=== PATIENT | female | born 1950 | race Caucasian/White ===

== ENCOUNTER → 2016-11-07 | Outpatient (CLI) | payer MEDICARE, OTHER ==
--- NOTE | 2016-11-07 13:26 | REP ---
Whole body radionuclide bone scan: The study includes whole body bone scanning from the calvarium to the feet. Additionally, lateral views of the calvarium, oblique views of the ribs and oblique views of the pelvis are included. There uptake in the right acromioclavicular joint, likely degenerative . There is no unusual uptake in the calvarium, spine, ribs, pelvis or lower extremities. No unusual uptake on the lateral views of the calvarium, oblique views of the ribs or oblique views of the pelvis. Impression: No abnormal radiotracer uptake except for uptake in the right acromioclavicular joint, likely degenerative. . The study is performed with 806.6 MBq of technetium 99m labeled MDP. Signed by Aime Doran MD 11/07/2016 01:18 P
== END ==
LOC: M RAD 09:38
PROVIDERS: ATTEND Internal Medicine Medical Oncology
DX: C50.919 Malignant neoplasm of unspecified site of unspecified female breast (principal); M54.5 Low back pain
CPT/HCPCS: 78306; A9503

== ENCOUNTER → 2017-01-30 | Outpatient (CLI) | payer MEDICARE, OTHER ==
--- NOTE | 2017-01-30 10:44 | REP ---
NONCONTRAST LOW-DOSE CHEST CT: HISTORY: Lung cancer screening study. FINDINGS: The study is positive. There are multiple nodular opacities bilaterally. There is a right middle lobe 4 mm nodule visible anteriorly and laterally on image number 40. There is a 3 mm right middle lobe nodule on image number 47. There is a somewhat curvilinear nodular density 5 mm in diameter in the right middle lobe visible on image number 55 and 56. On the left, there are two adjacent pulmonary nodules along the course of the major fissure which appear to be in the lower lobe. These measure 6 mm in diameter visible on image number 42 and 7 mm in diameter on image number 44 of today's study. There is also a 5 mm nodule in the left lower lobe visible on image number 50. None of these is visibly calcified. A 3 mm nodule is visible in the left lower lobe on image number 67. No other abnormality. IMPRESSION: Positive low-dose screening lung CT. Multiple noncalcified pulmonary nodules present bilaterally ranging in size up to 7 mm. Followup is recommended in 4-6 months. Signed by Luisito Hankins MD 01/30/2017 12:26 P
== END ==
LOC: M RAD 09:21
PROVIDERS: ATTEND Family Medicine
DX: F17.210 Nicotine dependence, cigarettes, uncomplicated (principal)

== ENCOUNTER → 2017-02-25 | Outpatient (CLI) | payer MEDICARE, OTHER ==
--- NOTE | 2017-03-01 10:15 | SLEEPCENT ---
DATE OF PROCEDURE: 02/25/2017 REFERRING PROVIDER: Dr. Lupis Welch INTERPRETATION: Nocturnal polysomnography was performed for the evaluation of sleep apnea syndrome symptoms consisting of excessive daytime sleepiness, snoring, morning headaches, and nonrestorative sleep. A total of 7 hours and 50 minutes of data was reviewed with 357.5 minutes of sleep identified. Sleep latency was 21.5 minutes. Rapid eye movement (REM) latency was 194 minutes. No slow wave sleep was identified. Sleep efficiency was 77.1%. Electrocardiogram (EKG) showed normal sinus rhythm with an average heart rate of 66 beats per minute. Speeding and slowing was noted surrounding some respiratory events. No epileptiform discharge observed. There were 62 events observed of 10 seconds in duration or longer for an apnea-hypopnea index (AHI) of 10.4. In reviewing the data, I felt that there were several unscored events that were . The events were predominantly obstructive apnea/hypopnea, though there were some central and mixed events present. RERA index was 1.2 giving a total respiratory disturbance index (RDI) of greater than 11.6. Mean oxygen saturation for the study was 93% with a minimum recorded value of 84%. Arousal index was 4.9. Periodic limb movement index was 3.4. IMPRESSION: 1. Obstructive sleep apnea, at least mild. RECOMMENDATIONS: The patient should return to [facility] for the determination of pressure therapy. Pending that intervention, alcohol and sedative usage should be avoided and care should be taken when operating motor vehicles.
== END ==
LOC: M SLEEP 20:00
PROVIDERS: ATTEND Internal Medicine Pulmonary Disease
DX: G47.30 Sleep apnea, unspecified (principal)

== ENCOUNTER → 2017-03-22 | Outpatient (CLI) | payer MEDICARE, OTHER ==
[~2017-03-22] VITALS: Ht 160 cm; Wt 81.6 kg
[~2017-03-22] MED LIST: GABA-282 PO; MELO7.5T7 PO; OMEP20CA3 PO; SERT50TA PO; SPIR1CAP INH; TAMO20TA4 PO
[2017-03-22] MEDS: NS 1,000 ML IV SCH ×2 (08:00→11:42)
--- NOTE | 2017-03-22 12:57 | ROOR ---
Patient Name: Ronel Ramires Procedure Date: 03/22/2017 12:51 PM Date of : 1950 Age: 67 Room: [facility] Gender: Female Note Status: Finalized Procedure: Colonoscopy Indications: Screening for colorectal malignant neoplasm Providers: Omer Antoine Jr, MD Referring MD: Omer Antoine Jr, MD Requesting Provider: Medicines: Propofol per Anesthesia Complications: No immediate complications. Procedure: Pre-Anesthesia Assessment: - Prior to the procedure, a History and Physical was performed, and patient medications and allergies were reviewed. The patient is competent. The risks and benefits of the procedure and the sedation options and risks were discussed with the patient. All questions were answered and informed consent was obtained. Patient identification and proposed procedure were verified by the physician and the nurse in the pre-procedure area and in the procedure room. Mental Status Examination: alert and oriented. Airway Examination: normal oropharyngeal airway and neck mobility. Respiratory Examination: clear to auscultation. CV Examination: normal. ASA Grade Assessment: II - A patient with mild systemic disease. After reviewing the risks and benefits, the patient was deemed in satisfactory condition to undergo the procedure. The anesthesia plan was to use moderate sedation / analgesia (conscious sedation). Immediately prior to administration of medications, the patient was re-assessed for adequacy to receive sedatives. The heart rate, respiratory rate, oxygen saturations, blood pressure, adequacy of pulmonary ventilation, and response to care were monitored throughout the procedure. The physical status of the patient was re-assessed after the procedure. The Colonoscope was introduced through the anus and advanced to the cecum, identified by appendiceal orifice and ileocecal valve. The colonoscopy was performed without difficulty. The patient tolerated the procedure well. The quality of the bowel preparation was adequate and good. Findings: The perianal and digital rectal examinations were normal. Pertinent negatives include normal sphincter tone, no palpable rectal lesions and no anal lesion or abnormality was detected. The rectum, recto-sigmoid colon, sigmoid colon, descending colon, transverse colon, ascending colon, cecum, appendiceal orifice and ileocecal valve appeared normal. Impression: - The rectum, recto-sigmoid colon, sigmoid colon, descending colon, transverse colon, ascending colon, cecum, appendiceal orifice and ileocecal valve are normal. - No specimens collected. Recommendation: - Discharge patient to home (ambulatory). - Repeat colonoscopy in 10 years for screening purposes. Omer Antoine MD Omer Antoine Jr, MD 03/22/2017 12:57:01 PM This report has been signed electronically. Number of Addenda: 0 Note Initiated On: 03/22/2017 12:51 PM Estimated Blood Loss: Estimated blood loss: none.
[2017-03-22 13:15] VITALS: BP 114/64
== END | disposition home or self-care (01) ==
LOC: M OPP 11:19
PROVIDERS: ATTEND Surgery
DX: Z12.11 Encounter for screening for malignant neoplasm of colon (principal); R12 Heartburn; M19.90 Unspecified osteoarthritis, unspecified site; R21 Rash and other nonspecific skin eruption; F32.9 Major depressive disorder, single episode, unspecified; F41.9 Anxiety disorder, unspecified; J44.9 Chronic obstructive pulmonary disease, unspecified; E66.9 Obesity, unspecified; Z85.3 Personal history of malignant neoplasm of breast; Z87.891 Personal history of nicotine dependence; Z79.899 Other long term (current) drug therapy; Z92.3 Personal history of irradiation; Z80.0 Family history of malignant neoplasm of digestive organs

== ENCOUNTER → 2017-04-04 | Outpatient (CLI) | payer MEDICARE, OTHER ==
--- NOTE | 2017-04-21 09:37 | SLEEPCENT ---
DATE OF STUDY: 04/04/2017 INTERPRETATION: Nocturnal polysomnography was performed for the determination of pressure therapy in this patient with mild/moderate obstructive sleep apnea with an respiratory distress index (RDI) of at least 11.6 and associated symptoms of excessive daytime sleepiness, snoring, morning headaches, and nonrestorative sleep. A total of 7 hours and 35 minutes of data was reviewed for the entire titration with 323 minutes of sleep identified. Sleep latency was 33 minutes. Rapid eye movement( REM) latency was 291 minutes. No slow wave sleep was identified. Sleep efficiency was 72.4%. Electrocardiogram (EKG) showed normal sinus rhythm with an average heart rate of 60 beats per minute. No epileptiform discharge observed. The patient had been fit with a Resmed Mirage Quattro Full Face Mask of extra small size, 4 cm of water pressure was applied to the circuit and the lights were dimmed. CPAP that initially began at 4 cm of water pressure was taken to a high of 9 although she appeared to do best on a pressure of 8 cm. On that pressure, her apnea-hypopnea index (AHI) was 1.7 and her respiratory arousal index (OLEA) was 2.9. Oxygen saturation roosevelt was 88%. Rebound rapid eye movement (REM) sleep was seen on this pressure with a reasonably good waveform. The limitation of the study is no supine sleep was seen through the entire titration. In reviewing her diagnostic study she spent the vast majority of time on her side though she did have some supine sleep observed. IMPRESSION: 1. Obstructive sleep apnea, mild/moderate, reasonably palliated and CPAP at 8 cm of water pressure. The limitation of this study is that no supine sleep was observed during the entire titration. RECOMMENDATION: Recommend continuation of CPAP therapy at the above pressure via and extra small Resmed Mirage Quattro Full Face Mask or mask of her preference. Clinical correlation will be necessary to ensure radiation of symptoms. SWATHI
== END ==
LOC: M SLEEP 19:34
PROVIDERS: ATTEND Internal Medicine Pulmonary Disease
DX: G47.33 Obstructive sleep apnea (adult) (pediatric) (principal)

== ENCOUNTER → 2017-07-18 | Outpatient (CLI) | payer MEDICARE, OTHER ==
--- NOTE | 2017-07-18 13:37 | REP ---
CT of the chest without IV contrast, follow up of lung nodules: Comparison is 01/30/2017. There are the following lung nodules: Image 31, right upper lobe, 12 mm, not present previously. Image 33, right upper lobe, 12 mm, not present previously. Image 45, right upper lobe, 5 mm, unchanged. Image 45, right lower lobe, 6 mm, 5 mm previously. Image 49, left upper lobe, 6 mm, unchanged. Image 50, left upper lobe, 7 mm, unchanged. Image 52, right middle lobe, 3 mm, unchanged. Image 56, left lower lobe, 5 mm, unchanged. Image 62, right middle lobe, 5 mm, unchanged. Image 76, Left lower lobe, 3 mm, unchanged. There are no acute infiltrates or effusions. There is no mediastinal adenopathy. No axillary adenopathy. In the absence of IV contrast the study is insensitive for hilar adenopathy. Thoracic aorta is unremarkable. Cardiac size is normal. The visualized upper abdominal contents are unremarkable. There is no adrenal mass. Signed by Aime Doran MD 07/18/2017 01:28 P
== END ==
LOC: M RAD 11:14
PROVIDERS: ATTEND Internal Medicine Pulmonary Disease
DX: R91.8 Other nonspecific abnormal finding of lung field (principal)

== ENCOUNTER → 2017-10-30 | Outpatient (CLI) | payer MEDICARE, OTHER | LOC: M RAD 11:42 | DX: R91.8 Other nonspecific abnormal finding of lung field (principal) | CPT/HCPCS: 71250 ==

== ENCOUNTER → 2018-01-04 | Outpatient (REF) | payer MEDICARE, OTHER ==
[2018-01-04 11:03] LABS: BASO # 0.1 10^3/uL (0.0-0.2); BASO % 1.6 % (0.0-1.0); EOS # 0.2 10^3/uL (0.0-0.50); EOS % 3.3 % (0.0-3.0); HEMATOCRIT 38.6 % (36.0-47.0); HEMOGLOBIN 12.5 g/dl (12.0-15.5); IMMATURE GRANULOCYTE % 0.3 % (0-3.0); LYMPH % 35.7 % (24.0-44.0); MEAN CORPUSCULAR HEMOGLOBIN 28.2 pg (27.0-33.0); MEAN CORPUSCULAR HGB CONC 32.4 g/dl (32.0-36.5); MEAN CORPUSCULAR VOLUME 87.1 fl (80.0-96.0); MONO # 0.4 10^3/uL (0.0-0.8); NEUTROPHILS % 52.1 % (36.0-66.0); PLATELET COUNT, AUTOMATED 268 10^3/uL (150-450); RED BLOOD COUNT 4.43 10^6/uL (4.00-5.40); RED CELL DISTRIBUTION WIDTH 14.1 % (11.5-14.5); WHITE BLOOD COUNT 5.7 10^3/uL (4.0-10.0)
[2018-01-04 11:26] LABS: ALBUMIN 3.6 GM/DL (3.2-5.2); ALBUMIN/GLOBULIN RATIO 1.06 (1.00-1.93); ALKALINE PHOSPHATASE 110 U/L (45-117); ALT/SGPT 22 U/L (12-78); ANION GAP 5 MEQ/L (8-16); AST/SGOT 16 U/L (7-37); BILIRUBIN,TOTAL 0.3 MG/DL (0.2-1.0); BLOOD UREA NITROGEN 14 MG/DL (7-18); CALCIUM LEVEL 8.8 MG/DL (8.8-10.2); CARBON DIOXIDE LEVEL 29 MEQ/L (21-32); CHLORIDE LEVEL 109 MEQ/L (98-107); CHOLESTEROL LEVEL 257 MG/DL (<200); CHOLESTEROL RISK RATIO 4.355 (<5); CREATININE FOR GFR 0.78 MG/DL (0.55-1.30); GLOMERULAR FILTRATION RATE > 60.0 (>45); GLUCOSE, FASTING 96 MG/DL (70-100); HDL CHOLESTEROL 59 MG/DL (>40); LDL CHOLESTEROL 165.2 MG/DL (<100); NON-HDL-C 198 MG/DL; SODIUM LEVEL 143 MEQ/L (136-145); TRIGLYCERIDES LEVEL 164 MG/DL (<150)
== END ==
LOC: M LABDRAW1 08:51
DX: R03.0 Elevated blood-pressure reading, without diagnosis of hypertension (principal)
CPT/HCPCS: 84443

== ENCOUNTER → 2018-03-05 | Outpatient (REF) | payer MEDICARE, OTHER ==
[2018-03-05 17:30] LABS: ALBUMIN 3.3 GM/DL (3.2-5.2); ALBUMIN/GLOBULIN RATIO 0.97 (1.00-1.93); ALKALINE PHOSPHATASE 107 U/L (45-117); ALT/SGPT 20 U/L (12-78); AST/SGOT 9 U/L (7-37); BILIRUBIN,DIRECT < 0.1 MG/DL (0.0-0.2); BILIRUBIN,TOTAL 0.2 MG/DL (0.2-1.0); CHOLESTEROL LEVEL 163 MG/DL (<200); FREE T4 1.05 NG/DL (0.76-1.46); HDL CHOLESTEROL 56 MG/DL (>40); LDL CHOLESTEROL 87.4 MG/DL (<100); NON-HDL-C 107 MG/DL; TOTAL PROTEIN 6.7 GM/DL (6.4-8.2); TRIGLYCERIDES LEVEL 98 MG/DL (<150)
== END ==
LOC: M LABDRAW1 11:41
DX: E78.2 Mixed hyperlipidemia (principal); R94.6 Abnormal results of thyroid function studies
CPT/HCPCS: 84443

== ENCOUNTER → 2018-03-15 | Outpatient (CLI) | payer MEDICARE, OTHER | LOC: M WHC 09:13 | DX: M81.8 Other osteoporosis without current pathological fracture (principal) | CPT/HCPCS: 77080 ==

== ENCOUNTER → 2018-04-29 | Outpatient (CLI) | payer MEDICARE, OTHER | LOC: M RAD 10:37 | DX: R91.8 Other nonspecific abnormal finding of lung field (principal) | CPT/HCPCS: 71250 ==

== ENCOUNTER 2019-01-28 09:55 | Emergency (ER) | payer MEDICARE, OTHER ==
[~2019-01-28] VITALS: Ht 162.6 cm; Wt 69.5 kg
[~2019-01-28 09:55] MED LIST changes: -GABA-282 PO; +GABA-843 PO; +SERT-141 PO; -SERT50TA PO; -TAMO20TA4 PO; +TAMO20TA8 PO
[2019-01-28] MEDS ORDERED: SYMB16INH INH (10:27)
[2019-01-28] MEDS ORDERED: ATOR1TAB19 PO (10:27)
[2019-01-28] MEDS ORDERED: GI COCKTAIL 50ML BTL(HYOSCYAMINE/MAALOX/LIDOCAINE VISCOUS)(1:3:1) PO ONE (10:30)
[2019-01-28 10:32] LABS: BASO # 0.1 10^3/uL (0.0-0.2); BASO % 0.9 % (0.0-1.0); EOS # 0.2 10^3/uL (0.0-0.50); EOS % 3.6 % (0.0-3.0); HEMATOCRIT 38.4 % (36.0-47.0); HEMOGLOBIN 12.3 g/dl (12.0-15.5); LYMPH # 1.9 10^3/uL (1.5-4.5); LYMPH % 34.3 % (24.0-44.0); MEAN CORPUSCULAR HEMOGLOBIN 28.1 pg (27.0-33.0); MEAN CORPUSCULAR VOLUME 87.7 fl (80.0-96.0); MONO # 0.5 10^3/uL (0.0-0.8); MONO % 8.1 % (0.0-5.0); NEUTROPHILS % 52.9 % (36.0-66.0); PLATELET COUNT, AUTOMATED 222 10^3/uL (150-450); RED BLOOD COUNT 4.38 10^6/uL (4.00-5.40); WHITE BLOOD COUNT 5.6 10^3/uL (4.0-10.0)
--- NOTE | 2019-01-28 10:35 | REP ---
Portable chest, 10:13 a.m., single AP view, the patient is upright: Comparison is the PA and lateral plain film study dated 07/24/2006. The lung estrada are clear. The cardiac size is normal. The vikki, mediastinum, and skeletal structures are unremarkable. Impression: Negative portable chest. There is no interval change. Electronically Signed by Aime Doran MD 01/28/2019 10:26 A
[2019-01-28 10:42] LABS: INR 0.98; PROTHROMBIN TIME 13.1 SECONDS (12.1-14.4)
[2019-01-28 11:02] LABS: ALBUMIN 3.2 GM/DL (3.2-5.2); ALT/SGPT 18 U/L (12-78); BILIRUBIN,DIRECT < 0.1 MG/DL (0.0-0.2); BILIRUBIN,TOTAL 0.3 MG/DL (0.2-1.0); BLOOD UREA NITROGEN 14 MG/DL (7-18); CALCIUM LEVEL 8.4 MG/DL (8.8-10.2); CARBON DIOXIDE LEVEL 29 MEQ/L (21-32); CHLORIDE LEVEL 106 MEQ/L (98-107); CK-MB VALUE MASS < 1.0 NG/ML (<3.6); CPK CREATINE PHOSPHOKINASE 51 U/L (26-192); CREATININE FOR GFR 0.76 MG/DL (0.55-1.30); GLOMERULAR FILTRATION RATE > 60.0 (>45); GLUCOSE, FASTING 145 MG/DL (70-100); LIPASE 116 U/L (73-393); MB/CK RELATIVE INDEX 1.96 (< OR =4); NT-PRO BNP 86 PG/ML (<125); POTASSIUM SERUM 3.7 MEQ/L (3.5-5.1); SODIUM LEVEL 141 MEQ/L (136-145); TOTAL PROTEIN 6.5 GM/DL (6.4-8.2); TROPONIN I < 0.02 NG/ML (< 0.10)
[2019-01-28] MEDS ORDERED: ISOVUE-370 76% 100ML VIAL (Q9967) As Ordered ONE (11:11)
--- NOTE | 2019-01-28 11:54 | REP ---
CT pulmonary angiogram: With IV contrast. History: Pleuritic chest pain. The patient gives a history of left breast cancer. Comparison studies: Comparison noncontrast chest CT study April 29, 2018. Contrast dose: 75 mL of Isovue [address] technique: Helical scanning is acquired and overlapping 1.5 mm and contiguous 3 mm axial images are reformatted. In addition, maximum intensity projection and multiplanar re-formation images are generated in sagittal and coronal imaging projections. CT pulmonary angiographic findings: There is good opacification of the pulmonary arterial tree and there is no CT evidence of pulmonary embolism. No hilar or mediastinal mass or adenopathy is seen. No pleural or pericardial effusion is appreciated. There is a very small hiatal hernia. No adrenal lesion is observed. Visualized upper abdominal structures are unremarkable. There is a band of soft tissue density extending from the anterior surface of the medial aspect of the left pectoralis muscle anteriorly and superiorly to the overlying skin. This measures 2.5 cm in medial to lateral span by 3.1 cm anterior to posterior. This is not a new finding. It has relatively low density suggesting the possibility of hematoma/seroma. However, it is a little larger than it was previously. On October 2017 it measured 1.6 cm in thickness, 2.5 cm today. There are multiple bilateral noncalcified pulmonary nodules most of which are perifissural nodules. These are unchanged from April 29, 2018 prior study. The largest of these measures 7 mm in diameter. This is along the major fissure on the left. No new pulmonary nodule is appreciated. The previously noted right upper lobe ground-glass opacity has resolved. No bony destructive lesion is seen. Impression: No CT evidence of pulmonary embolus. There is a band of linear low density fluid or soft tissue in the subcutaneous fat of the left upper breast between the pectoralis muscle and the overlying skin. This is larger than it was on April of 2018. It measures 2.5 x 3.1 cm. Question hematoma seroma versus other. This should be correlated on physical exam. Otherwise no acute abnormality. Multiple stable perifissural lung nodules. Electronically Signed by Luisito Hankins MD 01/28/2019 05:22 P
[2019-01-28] MEDS ORDERED: SUCRALFATE SUSP 1GM/10ML UD PO ONE (13:00)
[2019-01-28] MEDS ORDERED: MORPHINE 2 MG/ML 1ML SYRINGE (J2270) IV PRN (13:00)
[2019-01-28] MEDS ORDERED: ONDANSETRON 4MG/2ML VIAL (J2405) IV ONE (13:00)
[2019-01-28] MEDS ORDERED: PANTOPRAZOLE 40MG INJ (PROTONIX) (C9113) IV ONE (13:00)
[2019-01-28] MEDS ORDERED: ASPI81TA85 PO (15:41)
[2019-01-28 16:48] LABS: CK-MB VALUE MASS < 1.0 NG/ML (<3.6); CPK CREATINE PHOSPHOKINASE 51 U/L (26-192); MB/CK RELATIVE INDEX 1.96 (< OR =4); TROPONIN I < 0.02 NG/ML (< 0.10)
[2019-01-28 17:42] VITALS: BP 100/59
--- NOTE | 2019-01-29 11:29 | ECGEPIP ---
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
--- NOTE | 2019-01-29 11:33 | ECGEPIP ---
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
--- NOTE | 2019-01-29 13:26 | ECGEPIP ---
Stationary ECG Study [facility] - ED Test Date: 2019-01-28 Pat Name: JOSE ALCANTAR Department: Room: - Gender: F Head Of Research & Insights: antonio : 1950 Requested By: Maritza Mosquera Order Number: [id number] Reading MD: Maritza Mosquera Measurements Intervals [place] Rate: 61 P: 57 ID: 165 QRS: 79 QRSD: 97 T: 53 QT: 405 QTc: 411 Interpretive Statements SINUS RHYTHM SIMILAR 01/28/19 12:55 Electronically Signed On 01-29-2019 13:26:19 EDT by Maritza Mosquera
--- NOTE | 2019-02-04 13:17 | ED PDOC ---
Post-Departure Follow-Up dr retana faxed formal report of cta for fu Alicia Bañuelos MD February 04, 2019 13:17
== END 2019-01-28 17:44 | disposition home or self-care (01) ==
LOC: M ED 09:55 → EDBD 09:55 → M ED 17:44
DX: R07.89 Other chest pain (principal); J44.9 Chronic obstructive pulmonary disease, unspecified; E78.5 Hyperlipidemia, unspecified; Z79.899 Other long term (current) drug therapy; Z79.82 Long term (current) use of aspirin; Z87.891 Personal history of nicotine dependence
CPT/HCPCS: 71045; 71275; 80047; 80048; 80076; 82550; 82553; 83690; 83880; 84443; 84484; 85025; 85610; 93005; 93041; 94760; 96374; 96375; 99285; C9113; J2270; J2405; Q9967

== ENCOUNTER → 2019-05-07 | Outpatient (REF) | payer MEDICARE, OTHER ==
[~2019-05-07] MED LIST changes: +ASPI81TA85 PO; +ATOR1TAB19 PO; -OMEP20CA3 PO; +OMEP20CA4 PO; +SYMB16INH INH
[2019-05-07 19:27] LABS: HEMOGLOBIN A1c 6.1 %
== END ==
LOC: M LABDRAW1 14:21
PROVIDERS: ATTEND Internal Medicine Cardiovascular Disease
DX: R73.9 Hyperglycemia, unspecified (principal)

== ENCOUNTER → 2019-07-07 | Outpatient (REF) | payer MEDICARE, OTHER ==
[2019-07-07 12:21] LABS: BASO # 0.1 10^3/uL (0.0-0.2); BASO % 1.5 % (0.0-1.0); EOS # 0.2 10^3/uL (0.0-0.5); EOS % 3.6 % (0.0-3.0); HEMATOCRIT 39.5 % (36.0-47.0); HEMOGLOBIN 12.7 g/dl (12.0-15.5); LYMPH # 1.7 10^3/uL (1.5-5.0); LYMPH % 29.6 % (24.0-44.0); MEAN CORPUSCULAR HEMOGLOBIN 28.6 pg (27.0-33.0); MEAN CORPUSCULAR HGB CONC 32.2 g/dl (32.0-36.5); MONO # 0.6 10^3/uL (0.0-0.8); NEUTROPHILS # 3.2 10^3/uL (1.5-8.5); PLATELET COUNT, AUTOMATED 242 10^3/uL (150-450); RED BLOOD COUNT 4.44 10^6/uL (4.00-5.40); WHITE BLOOD COUNT 5.9 10^3/uL (4.0-10.0)
[2019-07-07 13:03] LABS: ALBUMIN 3.4 GM/DL (3.2-5.2); ALT/SGPT 23 U/L (12-78); BILIRUBIN,TOTAL 0.3 MG/DL (0.2-1.0); BLOOD UREA NITROGEN 17 MG/DL (7-18); CALCIUM LEVEL 9.2 MG/DL (8.8-10.2); CARBON DIOXIDE LEVEL 30 MEQ/L (21-32); CHLORIDE LEVEL 107 MEQ/L (98-107); CHOLESTEROL LEVEL 197 MG/DL (<200); CHOLESTEROL RISK RATIO 3.283 (<5); CREATININE FOR GFR 0.73 MG/DL (0.55-1.30); GLOMERULAR FILTRATION RATE > 60.0 (>45); GLUCOSE, FASTING 98 MG/DL (70-100); HDL CHOLESTEROL 60 MG/DL (>40); LDL CHOLESTEROL 118 MG/DL (<100); NON-HDL-C 137 MG/DL; POTASSIUM SERUM 4.8 MEQ/L (3.5-5.1); SODIUM LEVEL 141 MEQ/L (136-145); TOTAL PROTEIN 6.8 GM/DL (6.4-8.2); TRIGLYCERIDES LEVEL 97 MG/DL (<150)
== END ==
LOC: M LABDRAW1 11:50
PROVIDERS: ATTEND Family Medicine
DX: R03.0 Elevated blood-pressure reading, without diagnosis of hypertension (principal); J44.9 Chronic obstructive pulmonary disease, unspecified; K21.9 Gastro-esophageal reflux disease without esophagitis; Z79.899 Other long term (current) drug therapy

== ENCOUNTER → 2019-12-31 | Outpatient (REF) | payer MEDICARE, OTHER ==
[~2019-12-31] MED LIST changes: +OMEP1CAP73 PO; -OMEP20CA4 PO
[2019-12-31 14:05] LABS: BLOOD UREA NITROGEN 19 MG/DL (7-18); CREATININE FOR GFR 0.79 MG/DL (0.55-1.30); GLOMERULAR FILTRATION RATE > 60.0 (>45)
== END ==
LOC: M LABDRAW1 12:53
PROVIDERS: ATTEND Nurse Practitioner Family
DX: Z85.3 Personal history of malignant neoplasm of breast (principal)

== ENCOUNTER → 2020-04-21 | Outpatient (CLI) | payer MEDICARE, SELFPAY ==
[~2020-04-21] MED LIST changes: -ASPI81TA85 PO; +ASPI81TA86 PO
== END ==
LOC: M LABSMTC 11:05
PROVIDERS: ATTEND Family Medicine
DX: Z11.59 Encounter for screening for other viral diseases (principal); Z20.828 Contact with and (suspected) exposure to other viral communicable diseases

== ENCOUNTER 2020-04-23 14:00 | Emergency (ER) | payer MEDICARE, OTHER ==
[2020-04-23] MEDS ORDERED: ISOVUE-370 76% 100ML VIAL As Ordered ONE (16:56)
--- NOTE | 2020-06-03 14:01 | ECGEPIP ---
SINUS RHYTHM NORMAL ECG SEE SCANNED DOWNTIME REPORT MTDD
[2020-06-06 16:49] LABS: BASO # 0.1 10^3/uL (0.0-0.2); BASO % 1.2 % (0.0-1.0); EOS # 0.2 10^3/uL (0.0-0.5); EOS % 3.6 % (0.0-3.0); HEMATOCRIT 41.2 % (36.0-47.0); HEMOGLOBIN 13.3 g/dl (12.0-15.5); LYMPH % 29.1 % (24.0-44.0); MEAN CORPUSCULAR HEMOGLOBIN 27.9 pg (27.0-33.0); MEAN CORPUSCULAR HGB CONC 32.3 g/dl (32.0-36.5); MEAN CORPUSCULAR VOLUME 86.6 fl (80.0-96.0); MONO # 0.7 10^3/uL (0.0-0.8); MONO % 9.9 % (0.0-5.0); NEUTROPHILS # 3.7 10^3/uL (1.5-8.5); NEUTROPHILS % 55.8 % (36.0-66.0); PLATELET COUNT, AUTOMATED 279 10^3/uL (150-450); RED BLOOD COUNT 4.76 10^6/uL (4.00-5.40); WHITE BLOOD COUNT 6.7 10^3/uL (4.0-10.0)
[2020-07-12 12:39] LABS: ALBUMIN 3.4 GM/DL (3.2-5.2); ALT/SGPT 35 U/L (12-78); BILIRUBIN,TOTAL 0.2 MG/DL (0.2-1.0); BLOOD UREA NITROGEN 16 MG/DL (7-18); CALCIUM LEVEL 9.1 MG/DL (8.8-10.2); CARBON DIOXIDE LEVEL 30 MEQ/L (21-32); CHLORIDE LEVEL 105 MEQ/L (98-107); CK-MB VALUE MASS < 1.0 NG/ML (<3.6); CPK CREATINE PHOSPHOKINASE 24 U/L (26-192); CREATININE FOR GFR 1.01 MG/DL (0.55-1.30); GLOMERULAR FILTRATION RATE 57.9 (>45); MB/CK RELATIVE INDEX 4.17 (< OR =4); POTASSIUM SERUM 4.3 MEQ/L (3.5-5.1); SODIUM LEVEL 139 MEQ/L (136-145); TOTAL PROTEIN 7.1 GM/DL (6.4-8.2); TROPONIN I < 0.02 NG/ML (< 0.10)
[2020-07-12 12:43] LABS: GLUCOSE, FASTING 90 MG/DL (70-100)
== END 2020-04-23 18:04 | disposition home or self-care (01) ==
LOC: M ED 14:00
DX: R91.8 Other nonspecific abnormal finding of lung field (principal); J44.9 Chronic obstructive pulmonary disease, unspecified; G47.30 Sleep apnea, unspecified; R92.8 Other abnormal and inconclusive findings on diagnostic imaging of breast; Z79.899 Other long term (current) drug therapy
CPT/HCPCS: 71045; 71275; 80053; 82553; 83605; 83880; 84484; 85025; 87040; 87486; 87581; 87633; 87798; 93005; 99284; Q9967

== ENCOUNTER → 2020-09-01 | Outpatient (CLI) | payer MEDICARE, OTHER ==
[2020-09-01 17:05] LABS: ALBUMIN 3.7 GM/DL (3.2-5.2); ALT/SGPT 21 U/L (12-78); BILIRUBIN,TOTAL 0.3 MG/DL (0.2-1.0); BLOOD UREA NITROGEN 14 MG/DL (7-18); CALCIUM LEVEL 9.1 MG/DL (8.8-10.2); CARBON DIOXIDE LEVEL 29 MEQ/L (21-32); CHLORIDE LEVEL 104 MEQ/L (98-107); CHOLESTEROL LEVEL 216 MG/DL (<200); CREATININE FOR GFR 0.92 MG/DL (0.55-1.30); FREE T4 1.12 NG/DL (0.76-1.46); GLOMERULAR FILTRATION RATE > 60.0 (>45); GLUCOSE, FASTING 119 MG/DL (70-100); HDL CHOLESTEROL 61 MG/DL (>40); LDL CHOLESTEROL 127 MG/DL (<100); NON-HDL-C 155 MG/DL; POTASSIUM SERUM 4.5 MEQ/L (3.5-5.1); SODIUM LEVEL 139 MEQ/L (136-145); TOTAL PROTEIN 7.2 GM/DL (6.4-8.2); TRIGLYCERIDES LEVEL 141 MG/DL (<150)
== END ==
LOC: M WUC 12:07
PROVIDERS: ATTEND Nurse Practitioner Family
DX: J44.9 Chronic obstructive pulmonary disease, unspecified (principal); E78.2 Mixed hyperlipidemia

== ENCOUNTER 2020-11-25 11:07 | Emergency (ER) | payer MEDICARE, OTHER ==
[~2020-11-25] VITALS: Ht 160 cm; Wt 80.8 kg
[~2020-11-25 11:07] MED LIST changes: +GABA-282 PO; -GABA-843 PO
[2020-11-25] MEDS ORDERED: PRED20TA PO (11:19)
[2020-11-25] MEDS ORDERED: AZIT-12 PO (11:19)
[2020-11-25 15:22] VITALS: BP 140/86
[2020-11-26] MEDS ORDERED: SPIR1CAP INH (09:43)
[2020-11-26] MEDS ORDERED: BACT800T5 PO (15:14)
== END 2020-11-25 14:20 | disposition home or self-care (01) ==
LOC: M ED 11:07
DX: U07.1 COVID-19 (principal); R06.00 Dyspnea, unspecified; R05 Cough; J44.9 Chronic obstructive pulmonary disease, unspecified; G47.33 Obstructive sleep apnea (adult) (pediatric); F33.9 Major depressive disorder, recurrent, unspecified; F41.9 Anxiety disorder, unspecified; Z79.82 Long term (current) use of aspirin; Z79.899 Other long term (current) drug therapy
CPT/HCPCS: 99281; M0239

== ENCOUNTER 2020-11-25 14:53 | Outpatient (CLI) | payer MEDICARE, OTHER ==
--- NOTE | 2020-11-25 13:25 | HPEPDOC ---
[facility] Medical History & Physical Date of Admission Nov 25, 2020 Date of Service: Nov 25, 2020 History and Physical Chief complaint: Who presented to the ER after a recent COVID19 diagnosis History of present illness: Patient is a 70 year old female who reported that on 11/21 was experiencing congestion, cough and body aches and eventually that tested for COVID19 on 11/24. Patient had tested positive at the urgent care. Patient was provided prescription of prednisone and azithromycin and went home. Subsequen cata, she contacted her natural sciences professor on 11/25 advised her to come to the emergency room for further evaluation and likely administration of monoclonal antibodies. Currently patient reports a mild headache. Denies any nausea, vomiting, and eyes any chest pain. Reports some shortness of breath. Reports a nonproductive cough. Reports some intermittent abdominal discomfort. Denies any constipation, diarrhea, or urinary discomfort. Denies any fevers but does report chills. Reports her appetite is normal without any changes in her weight. 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 Review of Systems: 10 point review of systems complete, all negative otherwise stated in HPI Physical exam: - Vitals: BP [130/82], HR [85], RR [20], Sat [95%RA], Temp [97.2F] - General: Lying in bed, Speaking in full sentences, AAOx3 - HEENT: NC, AT, PERRLA - CVS: RRR, +S1S2 - Lungs: Fair air entry bilaterally, No appreciable wheezing / rales / rhonchi - Abdomen: Soft, Non-distended, Non-tender - Extremities: No lower extremity edema, No calf tenderness - Neuro: No focal motor or sensory deficit - Skin: No visible rashes Labs: See below Imaging: See below EKG: See below Assessment and Plan: COVID19 infection - Patient reported symptom onset on 11/21 - Had tested positive on 11/24 - Has been advised to come to the emergency room for evaluation of monoclonal antibodies - Patient is saturating well on room air and is not hypoxic - Patient will be provided infusion of monoclonal antibodies - Discussed risks and benefits with patient; she agrees and has signed consent - After infusion patient will be monitored for signs of allergic reaction and will subsequently be discharged home with services with instructions to follow- up with primary care provider Home Medications Scheduled Atorvastatin Calcium (Atorvastatin Calcium) 10 Mg Tablet, 1 TAB PO DAILY Azithromycin (Azithromycin) 250 Mg Tablet, 250 MG PO ASDIRECTED Budesonide/Formoterol (Symbicort 160-4.5 Mcg Inhaler) 6 Gm Hfa.aer.ad, 2 PUFF INH BID Omeprazole (Omeprazole) 20 Mg Cap, 20 MG PO DAILY Prednisone (Prednisone) 20 Mg Tablet, 20 MG PO ASDIRECTED Sertraline Hcl (Sertraline HCl) 50 Mg Tab, 50 MG PO DAILY Tamoxifen Citrate (Tamoxifen Citrate) 20 Mg Tab, 20 MG PO DAILY Allergies Coded Allergies: No Known Allergies (Unverified , 03/13/17) MILAGROS SPAIN MD Nov 25, 2020 13:25
[2020-11-25 14:46] VITALS: BP 126/77
[~2020-11-25 14:53] MED LIST changes: +ALBUTEROL 90 MCG/ACT 8GM HFA INHALER INH PRN; +ALBUTEROL SULFATE 2.5 MG/0.5 ML INH NEB SOLN INH PRN; +AZIT-12 PO; +EPINEPHrine INJ 1 MG/ML 1ML AMP IM PRN; +NS 1,000 ML IV SCH; +PRED20TA PO; +diphenhydrAMINE 50MG/ML VIAL (J1200) IV PRN; +methylPREDNISolone 125MG 2ML VIAL IV PRN
[2020-11-25] MEDS ORDERED: BAMLANIVIMAB 700 MG in NS 250 ML IV ONE (15:00)
[2020-11-25 16:25] VITALS: BP 132/81
[2020-11-25 17:00] VITALS: BP 141/81
[2020-11-25 17:30] VITALS: BP 124/80
[2020-11-25 18:30] VITALS: BP 137/67
[2020-11-26] MEDS ORDERED: SPIR1CAP INH (09:43)
[2020-11-26] MEDS ORDERED: BACT800T5 PO (15:14)
== END 2020-11-25 18:40 | disposition home or self-care (01) ==
LOC: M 4MAIN 14:53 → M OPCLI4PR 14:53
PROVIDERS: ATTEND Internal Medicine
DX: U07.1 COVID-19 (principal)

== ENCOUNTER 2020-11-26 09:30 | Emergency (ER) | payer MEDICARE, OTHER ==
[~2020-11-26] VITALS: Ht 160 cm; Wt 80.6 kg
[~2020-11-26 09:30] MED LIST changes: -ALBUTEROL 90 MCG/ACT 8GM HFA INHALER INH PRN; -ALBUTEROL SULFATE 2.5 MG/0.5 ML INH NEB SOLN INH PRN; -EPINEPHrine INJ 1 MG/ML 1ML AMP IM PRN; -NS 1,000 ML IV SCH; -diphenhydrAMINE 50MG/ML VIAL (J1200) IV PRN; -methylPREDNISolone 125MG 2ML VIAL IV PRN
[2020-11-26] MEDS ORDERED: SPIR1CAP INH (09:43)
[2020-11-26] MEDS: COMBIVENT RESPIMAT 100-20MCG INHALER 4GM INH SCH ×3 (10:01→11:11)
[2020-11-26 10:39] LABS: BASO % 0.4 % (0.0-1.0); HEMATOCRIT 40.5 % (36.0-47.0); HEMOGLOBIN 13.2 g/dl (12.0-15.5); LYMPH # 1.1 10^3/uL (1.5-5.0); LYMPH % 22.6 % (24.0-44.0); MEAN CORPUSCULAR HEMOGLOBIN 28.3 pg (27.0-33.0); MEAN CORPUSCULAR HGB CONC 32.6 g/dl (32.0-36.5); MEAN CORPUSCULAR VOLUME 86.7 fl (80.0-96.0); MONO # 0.2 10^3/uL (0.0-0.8); NEUTROPHILS # 3.5 10^3/uL (1.5-8.5); NEUTROPHILS % 72.6 % (36.0-66.0); PLATELET COUNT, AUTOMATED 223 10^3/uL (150-450); RED BLOOD COUNT 4.67 10^6/uL (4.00-5.40); WHITE BLOOD COUNT 4.8 10^3/uL (4.0-10.0)
--- NOTE | 2020-11-26 10:40 | REP ---
INDICATION: Coronavirus workup. COMPARISON: None. TECHNIQUE: SINGLE PORTABLE AP VIEW OF THE CHEST WAS PERFORMED. FINDINGS: THERE IS NO ACUTE INFILTRATE OR PULMONARY EDEMA. LUNGS ARE CLEAR. HEART IS NOT SIGNIFICANTLY ENLARGED. MEDIASTINAL SILHOUETTE IS UNREMARKABLE. THE VISUALIZED OSSEOUS STRUCTURES ARE INTACT. IMPRESSION: NO ACUTE PULMONARY DISEASE. <Electronically signed by Aime Ojeda > 11/26/20 [id number]
[2020-11-26 10:48] LABS: INR 0.92; PROTHROMBIN TIME 12.5 SECONDS (12.5-14.3)
[2020-11-26 10:49] LABS: PARTIAL THROMBOPLASTIN TIME 25.8 SECONDS (24.2-38.5)
[2020-11-26 10:52] LABS: D-DIMER QUANT 540.5 ng/ml (<500)
[2020-11-26 10:59] LABS: ALBUMIN 3.7 GM/DL (3.2-5.2); ALT/SGPT 44 U/L (12-78); BILIRUBIN,TOTAL 0.2 MG/DL (0.2-1.0); BLOOD UREA NITROGEN 16 MG/DL (7-18); C REACTIVE PROTEIN QUANTITATIV 0.54 MG/DL (0.00-0.30); CALCIUM LEVEL 8.9 MG/DL (8.8-10.2); CARBON DIOXIDE LEVEL 27 MEQ/L (21-32); CHLORIDE LEVEL 107 MEQ/L (98-107); CK-MB VALUE MASS < 1.0 NG/ML (<3.6); CPK CREATINE PHOSPHOKINASE 30 U/L (26-192); FERRITIN 118 NG/ML (8-252); GLOMERULAR FILTRATION RATE > 60.0 (>45); GLUCOSE, FASTING 119 MG/DL (70-100); LDH LACTATE DEHYDROGENASE 136 U/L (84-246); MAGNESIUM LEVEL 2.3 MG/DL (1.8-2.4); MB/CK RELATIVE INDEX 3.33 (< OR =4); POTASSIUM SERUM 4.3 MEQ/L (3.5-5.1); SODIUM LEVEL 137 MEQ/L (136-145); TOTAL PROTEIN 7.3 GM/DL (6.4-8.2); TROPONIN I < 0.02 NG/ML (< 0.10)
[2020-11-26] MEDS ORDERED: ISOVUE-370 76% 100ML VIAL As Ordered ONE (11:24)
--- NOTE | 2020-11-26 13:32 | REP ---
INDICATION: sob, covid ro pe COMPARISON: None. TECHNIQUE: Axial contrast enhanced images from the thoracic inlet to the upper abdomen using pulmonary embolus technique with multiplanar re-formations. 75 ml Isovue 370 intravenous contrast material administered without complication. This CT examination was performed using the following dose reduction techniques: Automated exposure control, adjustment of mA and/or kv according to the patient's size, and use of iterative reconstruction technique. FINDINGS: Satisfactory enhancement of the pulmonary vasculature is achieved and no filling defects are identified to suggest pulmonary embolus. Further evaluation of the mediastinum demonstrates normal thoracic aorta, heart and pericardium. The bilateral lung estrada are well aerated and clear without consolidation pleural effusion or pneumothorax. Tracheobronchial tree is patent. No nodule or mass lesion is identified. No adenopathy noted. Surrounding musculoskeletal structures intact 3.6 cm likely cystic lesion along the medial aspect of the left breast is again noted and requires correlation. IMPRESSION: No evidence for pulmonary embolus. No acute mediastinal or pleural parenchymal process. 3.6 cm cystic appearing lesion along the medial aspect of the left breast again noted and requires correlation. <Electronically signed by Hemal Mishra > 11/26/20 [id number]
--- NOTE | 2020-11-26 13:35 | REP ---
INDICATION: let flank pain. COMPARISON: None TECHNIQUE: Axial pre and post contrast-enhanced images from the lung bases to the pubic symphysis using 100 cc Isovue 370 intravenous contrast material. Coronal and sagittal reformations obtained. This CT examination was performed using the following dose reduction techniques: Automated exposure control, adjustment of mA and/or kv according to the patient's size, and the use of iterative reconstruction technique. FINDINGS: Liver, spleen, pancreas, gallbladder, bilateral adrenal glands and kidneys are normal. The enteric system including stomach, small, and large bowel appears normal. No evidence for obstruction or acute inflammatory process. Pelvis demonstrates normal bladder and evidence for prior hysterectomy. No ascites. No free air. No intraperitoneal or retroperitoneal adenopathy. Abdominal aorta and vasculature appear normal. Musculoskeletal structures are intact and without acute osseous abnormality. IMPRESSION: No acute abdominopelvic pathology appreciated. <Electronically signed by Hemal Mishra > 11/26/20 [id number]
[2020-11-26] MEDS ORDERED: BACT800T5 PO (15:14)
[2020-11-26] MEDS ORDERED: BACTRIM 160MG/800MG DS TAB PO ONE (15:15)
[2020-11-26 15:30] VITALS: BP 127/68
--- NOTE | 2020-11-26 18:49 | ECGEPIP ---
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
--- NOTE | 2020-11-26 19:39 | ED PDOC ---
Post-Departure Follow-Up dr retana faxed cta chest for fu Alicia Bañuelos MD Nov 26, 2020 19:39
== END 2020-11-26 15:49 | disposition home health service (06) ==
LOC: M ED 09:30
DX: M54.5 Low back pain (principal); N39.0 Urinary tract infection, site not specified; U07.1 COVID-19; N60.02 Solitary cyst of left breast; J44.9 Chronic obstructive pulmonary disease, unspecified; K21.9 Gastro-esophageal reflux disease without esophagitis; G47.33 Obstructive sleep apnea (adult) (pediatric); F33.9 Major depressive disorder, recurrent, unspecified; F41.9 Anxiety disorder, unspecified; Z79.899 Other long term (current) drug therapy
CPT/HCPCS: 36415; 36600; 71045; 71275; 74178; 80053; 81001; 82550; 82553; 82728; 82803; 83605; 83615; 83735; 84145; 84484; 85025; 85379; 85384; 85610; 85730; 86140; 87040; 87088; 87186; 93005; 94640; 99285; Q9967

== ENCOUNTER → 2020-12-10 | Outpatient (CLI) | payer MEDICARE, OTHER ==
[~2020-12-10] MED LIST changes: +BACT800T5 PO
--- NOTE | 2020-12-10 12:17 | DEXAMM ---
INDICATION: Z13.820 SCR FOR OSTEOPOROSIS. COMPARISON: 03/15/2018 as well as other prior exams. TECHNIQUE: Bone density was measured using dual-energy x-ray absorptiometry (DEXA). FINDINGS: AP SPINE L1-L4 BMD 0.867 g/cm2 Young Adult T-Score -2.6 Age Matched Z-Score -1.0. LT FEMUR, TOTAL BMD 0.895 g/cm2 Young Adult T-Score -0.9 Age Matched Z-Score 0.6. LT NECK BMD 0.841 g/cm2 Young Adult T-Score -1.4 Age Matched Z-Score 0.3. RT FEMUR, TOTAL BMD 0.904 g/cm2 Young Adult T-Score -0.8 Age Matched Z-Score 0.6. RT NECK BMD 0.843 g/cm2 Young Adult T-Score -1.4 Age Matched Z-Score 0.3. IMPRESSION: There is osteoporosis of the spine. There is low bone density of the left hip. There is low bone density of the right hip. The density of the spine has increased 0.1% since the initial exam on 01/19/2010. The density of the spine decreased 5.6% since most recent exam on 03/15/2018. The density of the left hip has increased 0.7% since initial exam on 01/19/2010. The density of the left hip has decreased 2.1% since most recent exam on 03/15/2018. The density of the right hip has increased 7.2% since the initial exam on 01/19/2010. The density of the right hip has increased 0.4% since the most recent exam on 03/15/2018. FOLLOW-UP: Recommendation for the next bone density exam: 2 years. <Electronically signed by Aime Ojeda > 12/10/20 [id number]
== END ==
LOC: M WHC 10:43
PROVIDERS: ATTEND Nurse Practitioner Family
DX: Z13.820 Encounter for screening for osteoporosis (principal); M81.0 Age-related osteoporosis without current pathological fracture

== ENCOUNTER → 2021-03-15 | Outpatient (CLI) | payer MEDICARE, OTHER ==
[2021-03-15 11:50] LABS: ALBUMIN 3.4 GM/DL (3.2-5.2); ALT/SGPT 21 U/L (12-78); BILIRUBIN,TOTAL 0.3 MG/DL (0.2-1.0); BLOOD UREA NITROGEN 18 MG/DL (7-18); CALCIUM LEVEL 8.8 MG/DL (8.8-10.2); CARBON DIOXIDE LEVEL 29 MEQ/L (21-32); CHLORIDE LEVEL 105 MEQ/L (98-107); CREATININE FOR GFR 0.74 MG/DL (0.55-1.30); GLOMERULAR FILTRATION RATE > 60.0 (>39); GLUCOSE, FASTING 127 MG/DL (70-100); POTASSIUM SERUM 3.7 MEQ/L (3.5-5.1); SODIUM LEVEL 139 MEQ/L (136-145); TOTAL PROTEIN 6.6 GM/DL (6.4-8.2)
== END ==
LOC: M LAB 10:31
PROVIDERS: ATTEND Physician Assistant
DX: B35.1 Tinea unguium (principal)
CPT/HCPCS: 36415; 80053; G0463

== ENCOUNTER → 2021-04-04 | Outpatient (CLI) | payer MEDICARE, OTHER ==
--- NOTE | 2021-04-04 12:34 | REP ---
INDICATION: HX OF NICOTINE DEPENDENCE. COMPARISON: CTA 11/26/2020, 04/23/2020, 01/28/2019 TECHNIQUE: Low-dose lung CT noncontrast protocol followed FINDINGS: Lung estrada are well inflated. The right upper lobe on image 43 is a subpleural 5 mm nodule unchanged from November. There is a 6.7 mm nodule in the lateral the basal segment of the right lower lobe on image 43 which is also unchanged. The 1.5 cm density seen on 02/22 720 in superior segment of the right lower lobe is resolved with minimal residual scarring likely inflammatory process. There is cylindrical bronchiectatic change. 7 mm nodule in the perifissural region left mid lung zone which is unchanged. There are other 5-6 mm nodules scattered in the left lung peripherally and in the Danelle fissural region unchanged from previous study no pleural effusion, calcified pleural plaque or pleural thickening, apical scarring or pneumothorax IMPRESSION: 1. Lung RADS category 2, benign. Stable appearance of multiple perifissural nodules bilaterally, the largest 7 mm seen on both sides and with no new nodules or enlargement. No pleural thickening, pleural based mass, calcified plaque, pleural effusion or other acute finding. Patients in this category of finding have less than 1% chance of malignancy at the time of the examination. These are stable findings. For patients at high risk for malignancy, annual low-dose screening CT recommended. <Electronically signed by Oral Rosen > 04/04/21 [id number]
== END ==
LOC: M RAD 10:03
PROVIDERS: ATTEND Internal Medicine Pulmonary Disease
DX: Z87.891 Personal history of nicotine dependence (principal); R91.8 Other nonspecific abnormal finding of lung field

== ENCOUNTER → 2022-04-25 | Outpatient (CLI) | payer MEDICARE, OTHER | LOC: M RAD 08:32 | PROVIDERS: ATTEND Internal Medicine Pulmonary Disease | DX: Z87.891 Personal history of nicotine dependence (principal); R91.8 Other nonspecific abnormal finding of lung field; J47.9 Bronchiectasis, uncomplicated ==

== ENCOUNTER → 2022-11-23 | Outpatient (CLI) | payer MEDICARE, OTHER ==
[2022-11-23 16:19] LABS: BASO # 0.1 10^3/uL (0.0-0.2); BASO % 1.4 % (0.0-1.0); EOS # 0.2 10^3/uL (0.0-0.5); EOS % 2.8 % (0.0-3.0); HEMATOCRIT 40.1 % (36.0-47.0); HEMOGLOBIN 12.7 g/dl (12.0-15.5); LYMPH # 2.3 10^3/uL (1.5-5.0); LYMPH % 32.1 % (24.0-44.0); MEAN CORPUSCULAR HEMOGLOBIN 28.7 pg (27.0-33.0); MEAN CORPUSCULAR HGB CONC 31.7 g/dl (32.0-36.5); MEAN CORPUSCULAR VOLUME 90.7 fl (80.0-96.0); MONO # 0.6 10^3/uL (0.0-0.8); MONO % 8.8 % (2.0-8.0); NEUTROPHILS # 3.9 10^3/uL (1.5-8.5); NEUTROPHILS % 54.5 % (36.0-66.0); PLATELET COUNT, AUTOMATED 252 10^3/uL (150-450); RED BLOOD COUNT 4.42 10^6/uL (4.00-5.40); WHITE BLOOD COUNT 7.2 10^3/uL (4.0-10.0)
[2022-11-23 16:40] LABS: ALBUMIN 3.7 G/DL (3.2-5.2); ALKALINE PHOSPHATASE 93 U/L (46-116); ALT/SGPT 24 U/L (7.0-40); AST/SGOT 20 U/L (<34); BILIRUBIN,TOTAL 0.2 MG/DL (0.3-1.2); BLOOD UREA NITROGEN 16 MG/DL (9-23); CALCIUM LEVEL 9.1 MG/DL (8.3-10.6); CARBON DIOXIDE LEVEL 30 MMOL/L (20-31); CHLORIDE LEVEL 103 MMOL/L (98-107); CHOLESTEROL LEVEL 186 MG/DL (<200); CHOLESTEROL RISK RATIO 2.91 (<5); CREATININE FOR GFR 0.79 MG/DL (0.55-1.30); GLOMERULAR FILTRATION RATE > 60.0 (>39); GLUCOSE, FASTING 73 MG/DL (74-106); HDL CHOLESTEROL 63.7 MG/DL (>40); LDL CHOLESTEROL 97.7 MG/DL (<100); NON-HDL-C 122.3 MG/DL; POTASSIUM SERUM 4.4 MMOL/L (3.5-5.1); SODIUM LEVEL 138 MMOL/L (136-145); TOTAL PROTEIN 6.8 G/DL (5.7-8.2); TRIGLYCERIDES LEVEL 123 MG/DL (<150)
== END ==
LOC: M PLALAB 13:49
PROVIDERS: ATTEND Registered Nurse
DX: Z01.818 Encounter for other preprocedural examination (principal); J44.9 Chronic obstructive pulmonary disease, unspecified; E78.2 Mixed hyperlipidemia

== ENCOUNTER → 2023-03-26 | Outpatient (CLI) | payer MEDICARE, OTHER | LOC: M PLALAB 15:27 | PROVIDERS: ATTEND Nurse Practitioner Family | DX: J44.9 Chronic obstructive pulmonary disease, unspecified (principal) ==

== ENCOUNTER → 2023-05-23 | Outpatient (CLI) | payer MEDICARE, OTHER | LOC: M RAD 10:49 | PROVIDERS: ATTEND Internal Medicine Pulmonary Disease | DX: Z12.2 Encounter for screening for malignant neoplasm of respiratory organs (principal); Z87.891 Personal history of nicotine dependence ==

== ENCOUNTER → 2023-06-19 | Outpatient (CLI) | payer MEDICARE, OTHER | LOC: M WHC 09:07 | PROVIDERS: ATTEND Nurse Practitioner Family | DX: Z13.820 Encounter for screening for osteoporosis (principal); M85.88 Other specified disorders of bone density and structure, other site ==

== ENCOUNTER → 2023-09-20 | Outpatient (CLI) | payer MEDICARE, OTHER | LOC: M PLARAD 08:53 | PROVIDERS: ATTEND Nurse Practitioner Family | DX: G43.109 Migraine with aura, not intractable, without status migrainosus (principal) ==

== ENCOUNTER → 2023-10-31 | Outpatient (CLI) | payer MEDICARE, OTHER | LOC: M PLAIMG 08:21 | PROVIDERS: ATTEND Internal Medicine Pulmonary Disease | DX: R91.8 Other nonspecific abnormal finding of lung field (principal) ==

== ENCOUNTER 2023-12-01 14:40 | Inpatient (IN) | payer MEDICARE, OTHER ==
[~2023-12-01] VITALS: Ht 160 cm; Wt 77.3 kg
[2023-12-01] VITALS (7 sets, daily range): BP systolic 116–117; BP diastolic 70–73; TEMP 97.7–98.2; O2SAT 85–91
[2023-12-01] MEDS ORDERED: IPRATROPIUM 0.5MG/ALBUTEROL 2.5MG INH SOL UD 3ML (DUONEB) NEB PRN (14:55)
[2023-12-01 15:10] LABS: VENOUS BASE EXCESS 0.2 (-2.0-2.0); VENOUS HCO3 24.4 MMOL/L (23.0-27.0); VENOUS O2 SATURATION 95.1 % (60.0-80.0); VENOUS PARTIAL PRESSURE CO2 38.2 mmHg (38.0-50.0); VENOUS PARTIAL PRESSURE O2 74.2 mmHg (30.0-50.0); VENOUS PH 7.423 UNITS (7.330-7.430); VENOUS STANDARD HCO3 24.6 MMOL/L; VENOUS TOTAL CO2 25.6 MMOL/L (24.0-28.0)
[2023-12-01] MEDS: cefTRIAXone SOD 1 GM in D5W MINI-BAG PLUS 50 ML IV ONE (15:13)
[2023-12-01] MEDS: methylPREDNISolone 125MG 2ML VIAL IV ONE (15:13)
[2023-12-01] MEDS: AZITHROMYCIN INJ 500 MG, VIAL MATE ADAPTER 1 EACH in NS 250 ML IV ONE (15:13)
[2023-12-01] MEDS: ACETAMINOPHEN TAB 650MG DOSE (2X325MG) PO ONE (15:13)
[2023-12-01] MEDS: NS 1,000 ML IV ONE ×2 (15:14→21:00)
[2023-12-01 15:27] LABS: BASO % 0.6 % (0.0-1.0); EOS % 0.5 % (0.0-3.0); HEMATOCRIT 39.6 % (36.0-47.0); HEMOGLOBIN 12.9 g/dl (12.0-15.5); LYMPH # 0.8 10^3/uL (1.5-5.0); LYMPH % 13.3 % (24.0-44.0); MEAN CORPUSCULAR HEMOGLOBIN 28.3 pg (27.0-33.0); MEAN CORPUSCULAR HGB CONC 32.6 g/dl (32.0-36.5); MEAN CORPUSCULAR VOLUME 86.8 fl (80.0-96.0); MONO # 0.5 10^3/uL (0.0-0.8); MONO % 7.4 % (2.0-8.0); NEUTROPHILS # 4.9 10^3/uL (1.5-8.5); NEUTROPHILS % 77.7 % (36.0-66.0); PLATELET COUNT, AUTOMATED 209 10^3/uL (150-450); RED BLOOD COUNT 4.56 10^6/uL (4.00-5.40); WHITE BLOOD COUNT 6.3 10^3/uL (4.0-10.0)
[2023-12-01 15:49] LABS: ALBUMIN 3.4 G/DL (3.2-5.2); ALKALINE PHOSPHATASE 95 U/L (46-116); ALT/SGPT 30 U/L (7.0-40); AST/SGOT 25 U/L (<34); BILIRUBIN,DIRECT < 0.1 MG/DL (<0.4); BILIRUBIN,TOTAL 0.3 MG/DL (0.3-1.2); BLOOD UREA NITROGEN 11 MG/DL (9-23); CALCIUM LEVEL 8.5 MG/DL (8.3-10.6); CARBON DIOXIDE LEVEL 25 MMOL/L (20-31); CHLORIDE LEVEL 101 MMOL/L (98-107); CK-MB VALUE MASS < 1.0 NG/ML (<3.6); CREATININE FOR GFR 0.71 MG/DL (0.55-1.30); GLOMERULAR FILTRATION RATE > 60.0 (>39); GLUCOSE, FASTING 132 MG/DL (74-106); SODIUM LEVEL 134 MMOL/L (136-145); TOTAL PROTEIN 6.6 G/DL (5.7-8.2)
[2023-12-01 15:51] LABS: THYROID STIMULATING HORMONE 2.362 uIU/ML (0.55-4.78)
[2023-12-01 16:00] LABS: PROCALCITONIN 0.13 ng/ml
[2023-12-01 16:02] LABS: CPK CREATINE PHOSPHOKINASE 89 U/L (34-145); MB/CK RELATIVE INDEX 1.12 (< OR =4)
[2023-12-01] MEDS ORDERED: ISOVUE-370 76% 100ML VIAL As Ordered ONE (16:58)
[2023-12-01] MEDS ORDERED: ONDANSETRON 4MG 2ML VIAL IV PRN (17:10)
[2023-12-01] MEDS ORDERED: VENTAER INH (17:20)
[2023-12-01] MEDS ORDERED: FLUT15.820 (17:20)
[2023-12-01] MEDS ORDERED: BUDE10.22 INH (17:20)
[2023-12-01] MEDS ORDERED: ALBU2.5V10 INH (17:20)
[2023-12-01] MEDS ORDERED: SUMA25TA3 PO (17:20)
[2023-12-01] MEDS ORDERED: HOME MED LIST COMPLETE! XX SCH (17:25)
[2023-12-01] MEDS ORDERED: SUMAtriptan SUCCINATE 25 MG TAB PO SCH (17:40)
[2023-12-01] MEDS: PANTOPRAZOLE 40MG VIAL IV SCH (18:22)
[2023-12-01] MEDS: NS 1,000 ML IV SCH (18:22)
[2023-12-01] MEDS: SYMBICORT 80/4.5MCG INHALER 6GM INH SCH (19:20)
[2023-12-01] MEDS: IPRATROPIUM 0.5MG/ALBUTEROL 2.5MG INH SOL UD 3ML (DUONEB) NEB SCH (19:20)
[2023-12-01] MEDS ORDERED: ACETAMINOPHEN 500 MG TAB PO PRN (20:05)
[2023-12-01] MEDS: ACETAMINOPHEN 500 MG TAB PO PRN (20:15)
[2023-12-01] MEDS: BENZONATATE 100MG CAPSULE PO PRN (20:15)
[2023-12-01] MEDS ORDERED: PIPERACILLIN/TAZOBACTAM SOD 4.5 GM in D5W MINI-BAG PLUS 50 ML IV SCH (20:35)
[2023-12-01] MEDS: ALBUTEROL SULFATE 2.5MG/0.5ML INH NEB SOLN NEB PRN (20:49)
[2023-12-01] MEDS ORDERED: VANCOMYCIN HCL 750 MG, VIAL MATE ADAPTER 1 EACH in D5W 250 ML IV ONE ×2 (21:00→22:00)
[2023-12-01 21:04] LABS: ABG BASE EXCESS -7.7 (-2.0-2.0); ABG HCO3 17.3 MMOL/L (22.0-26.0); ABG O2 SATURATION 99.2 % (95.0-99.0); ABG PARTIAL PRESSURE CO2 33.8 mmHg (35.0-45.0); ABG PARTIAL PRESSURE O2 157.6 mmHg (75.0-100.0); ABG STANDARD HCO3 18.3 MMOL/L. (22.0-26.0); ABG TOTAL CO2 18.4 MMOL/L (23.0-31.0); ABG pH (ARTERIAL) 7.328 UNITS (7.350-7.450)
[2023-12-01] MEDS ORDERED: VANCOMYCIN HCL 1,000 MG, VIAL MATE ADAPTER 1 EACH in NS 250 ML IV SCH (21:05)
[2023-12-01 21:18] LABS: BASO % 0.3 % (0.0-1.0); HEMATOCRIT 36.7 % (36.0-47.0); HEMOGLOBIN 11.8 g/dl (12.0-15.5); LYMPH # 0.3 10^3/uL (1.5-5.0); LYMPH % 7.8 % (24.0-44.0); MEAN CORPUSCULAR HEMOGLOBIN 28.8 pg (27.0-33.0); MEAN CORPUSCULAR HGB CONC 32.2 g/dl (32.0-36.5); MEAN CORPUSCULAR VOLUME 89.5 fl (80.0-96.0); MONO # 0.1 10^3/uL (0.0-0.8); MONO % 2.3 % (2.0-8.0); NEUTROPHILS # 3.6 10^3/uL (1.5-8.5); NEUTROPHILS % 88.8 % (36.0-66.0); PLATELET COUNT, AUTOMATED 178 10^3/uL (150-450)
[2023-12-01] MEDS: DEXTROMETHORPHAN 60MG/10ML SUSP 90ML BTL(DELSYM) PO PRN (21:32)
[2023-12-01 21:34] LABS: ERYTHROCYTE SEDIMENTATION RATE 27 mm/hr (0-30)
[2023-12-01 21:54] LABS: ALBUMIN 3.1 G/DL (3.2-5.2); ALKALINE PHOSPHATASE 91 U/L (46-116); ALT/SGPT 26 U/L (7.0-40); AST/SGOT 20 U/L (<34); BILIRUBIN,TOTAL < 0.2 MG/DL (0.3-1.2); BLOOD UREA NITROGEN 10 MG/DL (9-23); CALCIUM LEVEL 8.2 MG/DL (8.3-10.6); CARBON DIOXIDE LEVEL 22 MMOL/L (20-31); CHLORIDE LEVEL 108 MMOL/L (98-107); CREATININE FOR GFR 0.73 MG/DL (0.55-1.30); GLOMERULAR FILTRATION RATE > 60.0 (>39); GLUCOSE, FASTING 216 MG/DL (74-106); MAGNESIUM LEVEL 1.8 MG/DL (1.8-2.4); POTASSIUM SERUM 4.7 MMOL/L (3.5-5.1); SODIUM LEVEL 140 MMOL/L (136-145)
[2023-12-02] VITALS (8 sets, daily range): BP systolic 112–132; BP diastolic 59–77; TEMP 97.7–98.1; O2SAT 90–98
[2023-12-02] MEDS: methylPREDNISolone 125MG 2ML VIAL IV SCH (02:00)
[2023-12-02 06:56] LABS: HEMATOCRIT 35.1 % (36.0-47.0); HEMOGLOBIN 11.5 g/dl (12.0-15.5); MEAN CORPUSCULAR HEMOGLOBIN 28.8 pg (27.0-33.0); MEAN CORPUSCULAR HGB CONC 32.8 g/dl (32.0-36.5); PLATELET COUNT, AUTOMATED 163 10^3/uL (150-450); RED BLOOD COUNT 3.99 10^6/uL (4.00-5.40); WHITE BLOOD COUNT 2.9 10^3/uL (4.0-10.0)
[2023-12-02] MEDS: TIOTROPIUM INHALER/CAPSULE (SPIRIVA) INH SCH (07:16)
[2023-12-02] MEDS: SYMBICORT 160/4.5MCG INHALER 6GM INH SCH (07:16)
[2023-12-02 07:20] LABS: BLOOD UREA NITROGEN 8 MG/DL (9-23); CALCIUM LEVEL 8.4 MG/DL (8.3-10.6); CARBON DIOXIDE LEVEL 26 MMOL/L (20-31); CHLORIDE LEVEL 109 MMOL/L (98-107); GLOMERULAR FILTRATION RATE > 60.0 (>39); GLUCOSE, FASTING 133 MG/DL (74-106); POTASSIUM SERUM 4.3 MMOL/L (3.5-5.1); SODIUM LEVEL 141 MMOL/L (136-145)
[2023-12-02] MEDS: SERTRALINE HCL 50 MG TAB PO SCH (08:41)
[2023-12-02] MEDS: ENOXAPARIN 40MG/0.4ML SYRINGE (J1650 PER 10MG) SC SCH (08:41)
[2023-12-02] MEDS: ATORVASTATIN 10 MG TAB PO SCH (08:41)
[2023-12-02] MEDS: AZITHROMYCIN 250MG TABLET PO SCH (08:41)
[2023-12-02] MEDS ORDERED: predniSONE 20 MG TAB PO SCH (09:00)
[2023-12-02] MEDS: TAMOXIFEN CITRATE 10 MG TAB PO SCH (09:24)
[2023-12-02] MEDS: methylPREDNISolone 40MG 1ML VIAL IV SCH (11:23)
[2023-12-02] MEDS: guaiFENesin ER TABLET 600 MG TAB PO SCH (11:23)
[2023-12-02] MEDS: BUDESONIDE 0.5 MG/2 ML INHALATION SUSPENSION NEB SCH (19:37)
[2023-12-02] MEDS: FORMOTEROL FUMARATE 20 MCG/2 ML INHALATION SOLUTION (PERFOROMIST) INH SCH (19:37)
[2023-12-03 05:20] VITALS: BP 117/66; TEMP 97.2; O2SAT 92
[2023-12-03 06:23] LABS: HEMATOCRIT 36.7 % (36.0-47.0); HEMOGLOBIN 11.9 g/dl (12.0-15.5); LYMPH # 0.7 10^3/uL (1.5-5.0); LYMPH % 11.6 % (24.0-44.0); MEAN CORPUSCULAR HEMOGLOBIN 28.7 pg (27.0-33.0); MEAN CORPUSCULAR HGB CONC 32.4 g/dl (32.0-36.5); MEAN CORPUSCULAR VOLUME 88.6 fl (80.0-96.0); MONO # 0.2 10^3/uL (0.0-0.8); MONO % 3.4 % (2.0-8.0); NEUTROPHILS # 4.7 10^3/uL (1.5-8.5); NEUTROPHILS % 84.6 % (36.0-66.0); PLATELET COUNT, AUTOMATED 186 10^3/uL (150-450); RED BLOOD COUNT 4.14 10^6/uL (4.00-5.40); WHITE BLOOD COUNT 5.6 10^3/uL (4.0-10.0)
[2023-12-03 06:56] LABS: BLOOD UREA NITROGEN 12 MG/DL (9-23); CALCIUM LEVEL 8.7 MG/DL (8.3-10.6); CARBON DIOXIDE LEVEL 29 MMOL/L (20-31); CHLORIDE LEVEL 108 MMOL/L (98-107); CREATININE FOR GFR 0.64 MG/DL (0.55-1.30); GLOMERULAR FILTRATION RATE > 60.0 (>39); GLUCOSE, FASTING 125 MG/DL (74-106); POTASSIUM SERUM 4.4 MMOL/L (3.5-5.1); SODIUM LEVEL 141 MMOL/L (136-145)
[2023-12-03 10:00] VITALS: BP 120/69; TEMP 97.7; O2SAT 93
[2023-12-03] MEDS: IPRATROPIUM 0.5MG/ALBUTEROL 2.5MG INH SOL UD 3ML (DUONEB) NEB SCH (11:25)
[2023-12-03 14:00] VITALS: BP 137/75; TEMP 97.5; O2SAT 88
[2023-12-03 18:00] VITALS: BP 128/73; TEMP 97.5; O2SAT 90
[2023-12-03 20:30] VITALS: BP 129/76; TEMP 97.1; O2SAT 90
[2023-12-03] MEDS: BENZONATATE 100MG CAPSULE PO PRN (22:40)
[2023-12-04] VITALS (7 sets, daily range): BP systolic 128–132; BP diastolic 78–80; TEMP 97.2–97.9; O2SAT 87–97
[2023-12-04 06:46] LABS: BASO % 0.1 % (0.0-1.0); HEMATOCRIT 39.2 % (36.0-47.0); HEMOGLOBIN 12.6 g/dl (12.0-15.5); LYMPH # 1.2 10^3/uL (1.5-5.0); LYMPH % 13.8 % (24.0-44.0); MEAN CORPUSCULAR HEMOGLOBIN 28.4 pg (27.0-33.0); MEAN CORPUSCULAR HGB CONC 32.1 g/dl (32.0-36.5); MEAN CORPUSCULAR VOLUME 88.3 fl (80.0-96.0); MONO # 0.2 10^3/uL (0.0-0.8); MONO % 2.7 % (2.0-8.0); NEUTROPHILS # 7.1 10^3/uL (1.5-8.5); NEUTROPHILS % 82.6 % (36.0-66.0); PLATELET COUNT, AUTOMATED 238 10^3/uL (150-450); RED BLOOD COUNT 4.44 10^6/uL (4.00-5.40); WHITE BLOOD COUNT 8.6 10^3/uL (4.0-10.0)
[2023-12-04 07:20] LABS: BLOOD UREA NITROGEN 14 MG/DL (9-23); CALCIUM LEVEL 9.4 MG/DL (8.3-10.6); CARBON DIOXIDE LEVEL 27 MMOL/L (20-31); CHLORIDE LEVEL 105 MMOL/L (98-107); CREATININE FOR GFR 0.67 MG/DL (0.55-1.30); GLOMERULAR FILTRATION RATE > 60.0 (>39); GLUCOSE, FASTING 120 MG/DL (74-106); POTASSIUM SERUM 4.7 MMOL/L (3.5-5.1); SODIUM LEVEL 140 MMOL/L (136-145)
[2023-12-04] MEDS ORDERED: MOM 30ML SUSPENSION UDC PO PRN (10:35)
[2023-12-04] MEDS: SENOKOT S TAB PO SCH (12:04)
[2023-12-04] MEDS: MIRALAX *UNIT DOSE* 17GM PACKET PO SCH (12:04)
[2023-12-04] MEDS: ACETYLCYSTEINE 20% 4 ML VIAL (200MG/ML) INH SCH (19:55)
[2023-12-05 00:21] VITALS: O2SAT 92
[2023-12-05 02:39] VITALS: O2SAT 91
[2023-12-05 03:18] VITALS: O2SAT 90
[2023-12-05 04:00] VITALS: O2SAT 90
[2023-12-05 05:30] VITALS: BP 141/83; TEMP 97.7; O2SAT 91
[2023-12-05 08:15] LABS: BASO % 0.2 % (0.0-1.0); HEMATOCRIT 39.3 % (36.0-47.0); HEMOGLOBIN 12.7 g/dl (12.0-15.5); LYMPH # 1.4 10^3/uL (1.5-5.0); LYMPH % 21.6 % (24.0-44.0); MEAN CORPUSCULAR HEMOGLOBIN 28.2 pg (27.0-33.0); MEAN CORPUSCULAR HGB CONC 32.3 g/dl (32.0-36.5); MEAN CORPUSCULAR VOLUME 87.3 fl (80.0-96.0); MONO # 0.2 10^3/uL (0.0-0.8); MONO % 3.3 % (2.0-8.0); NEUTROPHILS # 4.7 10^3/uL (1.5-8.5); NEUTROPHILS % 73.8 % (36.0-66.0); PLATELET COUNT, AUTOMATED 225 10^3/uL (150-450); WHITE BLOOD COUNT 6.4 10^3/uL (4.0-10.0)
[2023-12-05 08:44] LABS: BLOOD UREA NITROGEN 14 MG/DL (9-23); CALCIUM LEVEL 9.2 MG/DL (8.3-10.6); CARBON DIOXIDE LEVEL 27 MMOL/L (20-31); CHLORIDE LEVEL 101 MMOL/L (98-107); CREATININE FOR GFR 0.66 MG/DL (0.55-1.30); GLOMERULAR FILTRATION RATE > 60.0 (>39); GLUCOSE, FASTING 127 MG/DL (74-106); MAGNESIUM LEVEL 2.2 MG/DL (1.8-2.4); POTASSIUM SERUM 4.6 MMOL/L (3.5-5.1); SODIUM LEVEL 136 MMOL/L (136-145)
[2023-12-05] MEDS: PANTOPRAZOLE 40MG TAB (PROTONIX) PO SCH (08:59)
[2023-12-05] MEDS: BISACODYL 10MG SUPP PR ONE (11:21)
[2023-12-05] MEDS ORDERED: MUCI600T31 PO (11:23)
[2023-12-05] MEDS ORDERED: BENZ-18 PO (11:23)
[2023-12-05] MEDS ORDERED: PRED10TA2 PO ×2 (11:23→11:33)
[2023-12-05 14:00] VITALS: BP 140/88; TEMP 97.2; O2SAT 91
== END 2023-12-05 15:28 | disposition home health service (06) | DRG 190 ==
LOC: M ED 14:40 → EDBD 14:40 → M ED INP 16:50 → M MSPAV 17:52
PROVIDERS: ADMIT Internal Medicine; ATTEND Internal Medicine
DX: J44.1 Chronic obstructive pulmonary disease with (acute) exacerbation (principal); J12.3 Human metapneumovirus pneumonia; E87.20 Acidosis, unspecified; G47.33 Obstructive sleep apnea (adult) (pediatric); K59.00 Constipation, unspecified; Z85.3 Personal history of malignant neoplasm of breast; F32.A Depression, unspecified; Z79.899 Other long term (current) drug therapy; Z87.891 Personal history of nicotine dependence; Z90.12 Acquired absence of left breast and nipple; R91.8 Other nonspecific abnormal finding of lung field; E78.5 Hyperlipidemia, unspecified

== ENCOUNTER → 2024-04-07 | Outpatient (CLI) | payer MEDICARE, OTHER ==
[~2024-04-07] MED LIST changes: +ALBU2.5V10 INH; +BENZ-18 PO; +BUDE10.22 INH; +FLUT15.820; +MUCI600T31 PO; +PRED10TA2 PO; +SUMA25TA3 PO; +VENTAER INH
[2024-04-07 13:45] LABS: ALBUMIN 3.4 G/DL (3.2-5.2); ALKALINE PHOSPHATASE 108 U/L (46-116); ALT/SGPT 14 U/L (7.0-40); AST/SGOT 9 U/L (<34); BILIRUBIN,TOTAL 0.3 MG/DL (0.3-1.2); BLOOD UREA NITROGEN 15 MG/DL (9-23); CALCIUM LEVEL 9.3 MG/DL (8.3-10.6); CARBON DIOXIDE LEVEL 29 MMOL/L (20-31); CHLORIDE LEVEL 108 MMOL/L (98-107); CHOLESTEROL LEVEL 205 MG/DL (<200); CHOLESTEROL RISK RATIO 3.32 (<5); CREATININE FOR GFR 0.71 MG/DL (0.55-1.30); GLOMERULAR FILTRATION RATE > 60.0 (>39); GLUCOSE, FASTING 90 MG/DL (74-106); HDL CHOLESTEROL 61.7 MG/DL (>40); LDL CHOLESTEROL 114.5 MG/DL (<100); NON-HDL-C 143.3 MG/DL; POTASSIUM SERUM 4.9 MMOL/L (3.5-5.1); SODIUM LEVEL 142 MMOL/L (136-145); TOTAL PROTEIN 6.4 G/DL (5.7-8.2); TRIGLYCERIDES LEVEL 144 MG/DL (<150)
== END ==
LOC: M PLALAB 08:30
PROVIDERS: ATTEND Nurse Practitioner Family
DX: E78.2 Mixed hyperlipidemia (principal)

== ENCOUNTER → 2024-07-30 | Outpatient (CLI) | payer MEDICARE, OTHER ==
[~2024-07-30] MED LIST changes: +GABA-1172 PO; -GABA-282 PO
== END ==
LOC: M RAD 10:41
PROVIDERS: ATTEND Internal Medicine Pulmonary Disease
DX: R91.8 Other nonspecific abnormal finding of lung field (principal)

== ENCOUNTER → 2024-09-23 | Outpatient (CLI) | payer MEDICARE, OTHER | LOC: M PLAIMG 10:11 | PROVIDERS: ATTEND Nurse Practitioner Family | DX: R06.02 Shortness of breath (principal) ==

== ENCOUNTER 2024-10-14 09:29 | Emergency (ER) | payer MEDICARE, OTHER ==
[~2024-10-14] VITALS: Ht 160 cm; Wt 73.6 kg
[2024-10-14] MEDS: methylPREDNISolone 125MG 2ML VIAL IV ONE (09:45)
[2024-10-14 10:02] LABS: BASO # 0.1 10^3/uL (0.0-0.2); BASO % 0.9 % (0.0-1.0); EOS # 0.2 10^3/uL (0.0-0.5); EOS % 2.4 % (0.0-3.0); HEMATOCRIT 37.8 % (36.0-47.0); HEMOGLOBIN 12.4 g/dl (12.0-15.5); LYMPH # 1.6 10^3/uL (1.5-5.0); LYMPH % 23.7 % (24.0-44.0); MEAN CORPUSCULAR HEMOGLOBIN 28.4 pg (27.0-33.0); MEAN CORPUSCULAR HGB CONC 32.8 g/dl (32.0-36.5); MEAN CORPUSCULAR VOLUME 86.5 fl (80.0-96.0); MONO # 0.4 10^3/uL (0.0-0.8); MONO % 6.4 % (2.0-8.0); NEUTROPHILS # 4.4 10^3/uL (1.5-8.5); NEUTROPHILS % 66.2 % (36.0-66.0); PLATELET COUNT, AUTOMATED 229 10^3/uL (150-450); RED BLOOD COUNT 4.37 10^6/uL (4.00-5.40); VENOUS BASE EXCESS 0.5 (-2.0-2.0); VENOUS HCO3 25.4 MMOL/L (23.0-27.0); VENOUS O2 SATURATION 93.8 % (60.0-80.0); VENOUS PARTIAL PRESSURE CO2 42.1 mmHg (38.0-50.0); VENOUS PARTIAL PRESSURE O2 68.6 mmHg (30.0-50.0); VENOUS PH 7.399 UNITS (7.330-7.430); VENOUS STANDARD HCO3 24.8 MMOL/L; VENOUS TOTAL CO2 26.7 MMOL/L (24.0-28.0); WHITE BLOOD COUNT 6.7 10^3/uL (4.0-10.0)
[2024-10-14 10:29] LABS: ALBUMIN 3.3 G/DL (3.2-5.2); ALKALINE PHOSPHATASE 94 U/L (35-104); ALT/SGPT 19 U/L (7.0-40); AST/SGOT 18 U/L (<34); BILIRUBIN,DIRECT < 0.1 MG/DL (<0.4); BILIRUBIN,TOTAL 0.2 MG/DL (0.3-1.2); BLOOD UREA NITROGEN 13 MG/DL (9-23); CALCIUM LEVEL 8.8 MG/DL (8.3-10.6); CARBON DIOXIDE LEVEL 26 MMOL/L (20-31); CHLORIDE LEVEL 104 MMOL/L (98-107); CREATININE FOR GFR 0.67 MG/DL (0.55-1.30); GLOMERULAR FILTRATION RATE > 60.0 (>39); GLUCOSE, FASTING 106 MG/DL (74-106); POTASSIUM SERUM 3.6 MMOL/L (3.5-5.1); SODIUM LEVEL 142 MMOL/L (136-145); TOTAL PROTEIN 6.5 G/DL (5.7-8.2)
[2024-10-14] MEDS: IPRATROPIUM 0.5MG/ALBUTEROL 2.5MG INH SOL UD 3ML (DUONEB) NEB PRN (10:37)
[2024-10-14 11:01] LABS: THYROID STIMULATING HORMONE 3.104 uIU/ML (0.55-4.78)
[2024-10-14] MEDS ORDERED: propofoL 1,000 MG in IV 1 EA IV SCH (11:10)
[2024-10-14] MEDS ORDERED: LIDOCAINE 2% 5ML JELLY UROJET TOP ONE (11:10)
[2024-10-14 12:45] VITALS: O2SAT 91
[2024-10-14 13:01] VITALS: BP 111/57; TEMP 95.9; O2SAT 94
== END 2024-10-14 13:13 | disposition home or self-care (01) ==
LOC: M ED 09:29 → EDBD 09:29 → M ED 13:13
DX: B34.8 Other viral infections of unspecified site (principal); J44.9 Chronic obstructive pulmonary disease, unspecified; Z11.52 Encounter for screening for COVID-19; E78.5 Hyperlipidemia, unspecified; K21.9 Gastro-esophageal reflux disease without esophagitis; G47.33 Obstructive sleep apnea (adult) (pediatric); Z79.51 Long term (current) use of inhaled steroids; Z79.899 Other long term (current) drug therapy
CPT/HCPCS: 36415; 71045; 80048; 80076; 82803; 83605; 84443; 85025; 87040; 87486; 87581; 87633; 87798; 93005; 93041; 94640; 96374; 99285; J2919

== ENCOUNTER → 2025-04-15 | Outpatient (CLI) | payer MEDICARE, OTHER | LOC: M PLAIMG 11:48 | PROVIDERS: ATTEND Nurse Practitioner Family | DX: M25.512 Pain in left shoulder (principal) ==

== ENCOUNTER → 2025-07-28 | Outpatient (CLI) | payer MEDICARE, OTHER | LOC: M WHC 08:13 | PROVIDERS: ATTEND Nurse Practitioner Family | DX: M81.0 Age-related osteoporosis without current pathological fracture (principal) ==

== ENCOUNTER → 2025-07-30 | Outpatient (CLI) | payer MEDICARE, OTHER | LOC: M PLAIMG 14:11 | PROVIDERS: ATTEND Nurse Practitioner Family | DX: M54.6 Pain in thoracic spine (principal) ==